=== PATIENT | male | born 1980 | race Caucasian/White ===

== ENCOUNTER 2016-09-17 20:37 | Inpatient (IN) ==
[2016-09-17] MEDS ORDERED: *HR* LORazepam 2 MG/ML VIAL IVP ONE ×3 (20:39→23:19)
[2016-09-17] MEDS ORDERED: *HR* LORazepam 2 MG/ML VIAL ONE (20:49)
[2016-09-17] MEDS ORDERED: 0.9 % Sodium Chloride 1,000 ML IVC ONE ×3 (20:55→22:08)
--- NOTE | 2016-09-17 21:06 | Emergency Department Note ---
Disposition Clinical Impression: Drug overdose Qualifiers: Encounter type: initial encounter Injury intent: accidental or unintentional Qualified Code(s): T50.901A - Poisoning by unspecified drugs, medicaments and biological substances, accidental (unintentional), initial encounter Disposition: Admitted As Inpatient Condition: Fair Referrals: NO,PCP [Non-Partnered Physician] - Forms: ED Satisfaction Letter Time of Disposition: 22:09 General Adult HPI - General Chief complaint: ED Overdose Stated complaint: overdose Time Seen by Provider: 09/17/16 20:39 Source: EMS, police Mode of arrival: EMS Limitations: no limitations Nursing Notes Reviewed: Yes Vital Signs Reviewed: Yes - History of Present Illness HPI Narrative: 36-year-old male [place] park with altered mental status reportedly is coming down off a bath salts. No known trauma. He is occasionally aggressive towards EMS crew. He is not able to provide any history to us. He is agitated and yelling unintelligible words. No further history available. Pain Scale: 0 - Related Data Home Medications Medication Instructions Recorded Confirmed No Known Home Drugs 07/14/15 09/17/16 Allergies Allergy/AdvReac Type Severity Reaction Status Date / Time No Known Allergies Allergy Verified 07/14/15 10:20 Limitations: ROS unobtainable due to patients medical condition Past Medical History - Past Medical History Source: unable to obtain Medical history: Reports: no medical history Psychiatric history: Reports: no psych history - Social History Smoking Status: Current every day smoker Smokeless Tobacco Status: No Alcohol use: Reports: occasionally Drug use: Reports: opiates, marijuana, IVDU, prescription drug abuse Physical Exam - Head Head exam: atraumatic, normocephalic, normal inspection - Eye Eye exam: Present: normal appearance, pupils dilated and reactive bilaterally., EOMI - ENT ENT exam: normal exam, normal oropharynx, mucous membranes moist - Neck Neck exam: Present: normal inspection, full ROM, trachea midline - Chest Chest inspection: Present: normal inspection, symmetric chest wall rise - Respiratory Respiratory exam: Clear to auscultation bilaterally without wheezes rales or rhonchi Cardiovascular Tachycardic - Abdominal Exam Abdominal exam: Present: soft, Non-Tender. Absent: tenderness, distention, guarding, rebound, rigidity - Extremities Exam Extremities exam: Present: normal inspection, full ROM - Neurological Exam Awake, yelling unintelligible words. moves all extremities. - Psychiatric Psychiatric exam: Present: normal affect, normal mood - Skin Skin exam: Present: warm, diaphoretic, intact, normal color - General Limitations: no limitations General appearance: appears intoxicated Course - Reevaluation(s) Reevaluation #1: Patient received 2 mg of Ativan IM followed by 8 mg of Ativan IV for sedation. He is calm and comfortable this time. Awaiting labs prior to admission. Time: 21:26 Reevaluation #2: Patient calm and comfortable on reevaluation. He is protecting his airway at this time. EKG shows sinus tachycardia 136 with normal axis and intervals. No ST elevation or depression. No pathologic Q waves. No old EKG available. Time: 21:47 Reevaluation #3: Patient noted not to maintain urine in his Jung. Bedside ultrasound performed by myself shows Jung balloon in apparently good position with deflated bladder immediately adjacent. IV fluids were started wide open and another liter was ordered as well. Hospitalist was paged for admission. Time: 22:09 Additional Reevaluation(s): Patient accepted by hospitalist Dr. Agosto Vital Signs Temperature 103 F H 09/17/16 20:37 Pulse Rate 156 09/17/16 20:37 Respiratory Rate 28 09/17/16 20:37 Blood Pressure 99/63 09/17/16 20:37 O2 Sat by Pulse Oximetry 94 09/17/16 20:37 Temperature 103 F H 09/17/16 20:38 Pulse Rate 111 09/17/16 21:37 Respiratory Rate 20 09/17/16 21:37 Blood Pressure 120/87 09/17/16 21:37 O2 Sat by Pulse Oximetry 100 09/17/16 21:37 Oxygen Delivery Oxygen Delivery Room Air Medical Decision Making - Lab Data Result diagrams: 09/17/16 21:19 09/17/16 21:19 Lab Results 09/17/16 09/17/16 Range/Units 21:19 21:19 WBC 16.0 H (4.3-11.1) K/mcL RBC 4.71 (4.19-5.50) M/mcL Hgb 14.8 (12.9-16.9) g/dL Hct 44.0 (37.5-50.1) % MCV 93.4 (83.0-100.0) fL MCH 31.4 (28.0-33.3) pg MCHC 33.6 (31.6-35.5) g/dL RDW 13.4 (11.5-14.5) % Plt Count 325 (140-400) K/mcL MPV 9.4 (9.4-12.4) fL Immature Gran % 1.0 (0-4) % Seg Neutrophils % 89.4 % Lymphocytes % 5.6 % Monocytes % 3.7 % Eosinophils % 0.1 % Basophils % 0.2 % Neutrophils # 14.3 H (1.6-8.9) K/mcL Lymphocytes # 0.9 (0.6-4.6) K/mcL Monocytes # 0.6 (0.0-1.3) K/mcL Eosinophils # 0.0 (0.0-0.6) K/mcL Basophils # 0.0 (0.0-0.2) K/mcL Immature Plt Fraction 3.0 (1.1-6.1) % Sodium 146 H (136-145) mEq/L Potassium 4.2 (3.5-4.5) mEq/L Chloride 105 (98-109) mEq/L Carbon Dioxide 18 L (19-29) mEq/L BUN 13 (8-26) mg/dL Creatinine 1.85 H (0.72-1.25) mg/dL Est GFR ( Amer) 51 L (> 60) Est GFR (Non-Af Amer) 42 L (> 60) BUN/Creatinine Ratio 7 (6-26) Glucose 115 H (70-99) mg/dL Calculated Osmolality 303 H (280-300) Calcium 10.6 (8.6-10.8) mg/dL Total Bilirubin 0.3 (0.2-1.2) mg/dL Direct Bilirubin 0.3 (0.0-0.5) mg/dL Indirect Bilirubin 0.0 (0.0-1.2) mg/dL AST 33 (5-34) Units/L ALT 39 (0-55) Units/L Alkaline Phosphatase 104 (38-126) Units/L Serum Total Protein 10.0 H (6.0-8.3) g/dL Albumin 4.6 (3.5-5.0) g/dL Globulin 5.4 H (2.4-3.5) g/dL Albumin/Globulin Ratio 0.9 L (1.1-2.2) Salicylates < 5.0 L (15-30) mg/dL Acetaminophen < 1.0 L (10-30) mcg/mL Ethyl Alcohol < 10 (0-10) mg/dL
[2016-09-17 21:40] LABS: Basophils % 0.2 %; Eosinophils % 0.1 %; Hemoglobin 14.8 g/dL (12.9-16.9); Lymphocytes # 0.9 K/mcL (0.6-4.6); Lymphocytes % 5.6 %; Mean Corpuscular HGB Conc 33.6 g/dL (31.6-35.5); Mean Corpuscular Hemoglobin 31.4 pg (28.0-33.3); Mean Corpuscular Volume 93.4 fL (83.0-100.0); Mean Platelet Volume 9.4 fL (9.4-12.4); Monocytes # 0.6 K/mcL (0.0-1.3); Monocytes % 3.7 %; Neutrophils # 14.3 K/mcL (1.6-8.9); Platelet Count 325 K/mcL (140-400); Red Blood Count 4.71 M/mcL (4.19-5.50); Red Cell Distribution Width 13.4 % (11.5-14.5); Segmented Neutrophils % 89.4 %
--- NOTE | 2016-09-17 21:50 | Emergency Department Note ---
Disposition Clinical Impression: Drug overdose Disposition: Admitted As Inpatient Condition: Fair General Adult HPI - General Chief complaint: ED Overdose Stated complaint: overdose Time Seen by Provider: 09/17/16 20:39 Source: EMS, police Mode of arrival: EMS Limitations: no limitations - History of Present Illness Pain Scale: 0 - Related Data Home Medications Medication Instructions Recorded Confirmed No Known Home Drugs 07/14/15 09/17/16 Allergies Allergy/AdvReac Type Severity Reaction Status Date / Time No Known Allergies Allergy Verified 07/14/15 10:20 Past Medical History - Past Medical History Medical history: Reports: no medical history Psychiatric history: Reports: no psych history - Social History Smoking Status: Current every day smoker Smokeless Tobacco Status: No Alcohol use: Reports: occasionally Drug use: Reports: opiates, marijuana, IVDU, prescription drug abuse Physical Exam - General Limitations: no limitations General appearance: appears intoxicated Course - Reevaluation(s) Reevaluation #1: I saw the patient with the resident, Dr. Pulido, immediately on patient arrival. Patient reportedly is bath salt overdose by his own admission. History is obtained from the patient and the police. He was very agitated on arrival with spastic muscle movements. However he was alert and oriented. We got an IV into him and gave him multiple doses of Ativan. He required a total of 10 mg of Ativan IV before he finally calmed down and was able to sleep. I checked on him several times and he is breathing okay. We will wait for lab results. Disposition will be based on diagnostic results and reevaluation. Time: 21:50 Vital Signs Temperature 103 F H 09/17/16 20:37 Pulse Rate 156 09/17/16 20:37 Respiratory Rate 28 09/17/16 20:37 Blood Pressure 99/63 09/17/16 20:37 O2 Sat by Pulse Oximetry 94 09/17/16 20:37 Temperature 98.2 F 09/18/16 00:03 Pulse Rate 111 09/17/16 21:37 Respiratory Rate 18 09/18/16 00:03 Blood Pressure 102/73 09/18/16 00:03 O2 Sat by Pulse Oximetry 100 09/17/16 21:37 Oxygen Delivery Oxygen Delivery Nasal Cannula Medical Decision Making - Lab Data Result diagrams: 09/17/16 21:19 09/17/16 21:19 Lab Results 09/17/16 09/17/16 09/17/16 Range/Units 20:55 20:55 21:19 WBC 16.0 H (4.3-11.1) K/mcL RBC 4.71 (4.19-5.50) M/mcL Hgb 14.8 (12.9-16.9) g/dL Hct 44.0 (37.5-50.1) % MCV 93.4 (83.0-100.0) fL MCH 31.4 (28.0-33.3) pg MCHC 33.6 (31.6-35.5) g/dL RDW 13.4 (11.5-14.5) % Plt Count 325 (140-400) K/mcL MPV 9.4 (9.4-12.4) fL Immature Gran % 1.0 (0-4) % Seg Neutrophils % 89.4 % Lymphocytes % 5.6 % Monocytes % 3.7 % Eosinophils % 0.1 % Basophils % 0.2 % Neutrophils # 14.3 H (1.6-8.9) K/mcL Lymphocytes # 0.9 (0.6-4.6) K/mcL Monocytes # 0.6 (0.0-1.3) K/mcL Eosinophils # 0.0 (0.0-0.6) K/mcL Basophils # 0.0 (0.0-0.2) K/mcL Immature Plt Fraction 3.0 (1.1-6.1) % Sodium (136-145) mEq/L Potassium (3.5-4.5) mEq/L Chloride (98-109) mEq/L Carbon Dioxide (19-29) mEq/L BUN (8-26) mg/dL Creatinine (0.72-1.25) mg/dL Est GFR ( Amer) (> 60) Est GFR (Non-Af Amer) (> 60) BUN/Creatinine Ratio (6-26) Glucose (70-99) mg/dL Calculated Osmolality (280-300) Calcium (8.6-10.8) mg/dL Total Bilirubin (0.2-1.2) mg/dL Direct Bilirubin (0.0-0.5) mg/dL Indirect Bilirubin (0.0-1.2) mg/dL AST (5-34) Units/L ALT (0-55) Units/L Alkaline Phosphatase (38-126) Units/L Serum Total Protein (6.0-8.3) g/dL Albumin (3.5-5.0) g/dL Globulin (2.4-3.5) g/dL Albumin/Globulin Ratio (1.1-2.2) Urine Color Yellow (Yellow) Urine Clarity Cloudy A (Clear) Urine pH 7.0 (5.0-8.0) pH Units Ur Specific [place] 1.018 (1.010-1.025) Urine Protein 100 H (Neg-Trace) mg/dL Urine Glucose (UA) Normal (Normal) mg/dL Urine Ketones Negative (Negative) mg/dL Urine Blood Large H (Negative) Urine Nitrite Negative (Negative) Urine Bilirubin Negative (Negative) Urine Urobilinogen Normal (Normal) mg/dL Ur Leukocyte Esterase Small H (Negative) Urine Microscopic RBC 15-30 H (0-3) per hpf Urine Microscopic WBC 15-30 H (0-3) per hpf Ur Squamous Epith Cells Moderate H (None-Few) per lpf Ur Transition Epith Cell Few (None-Few) per hpf Urine Bacteria Moderate H (None-Few) per hpf Hyaline Casts Few (None-Few) per lpf Urine Mucus Few (Few) Salicylates (15-30) mg/dL Urine Opiates Screen Positive H (Ctgztb=317) ng/mL Acetaminophen (10-30) mcg/mL Ur Barbiturates Screen Negative (Ptxrnc=848) ng/mL Ur Phencyclidine Scrn Negative (Cutoff=25) ng/mL Ur Amphetamines Screen Positive H (Izniyp=8715) ng/mL U Benzodiazepines Scrn Negative (Hgqvqq=855) ng/mL Urine Cocaine Screen Negative (Cutoff= 300) ng/mL U Marijuana (THC) Screen Negative (Cutoff = 50) ng/mL Ethyl Alcohol (0-10) mg/dL 09/17/ Range/Units 21:19 WBC (4.3-11.1) K/mcL RBC (4.19-5.50) M/mcL Hgb (12.9-16.9) g/dL Hct (37.5-50.1) % MCV (83.0-100.0) fL MCH (28.0-33.3) pg MCHC (31.6-35.5) g/dL RDW (11.5-14.5) % Plt Count (140-400) K/mcL MPV (9.4-12.4) fL Immature Gran % (0-4) % Seg Neutrophils % % Lymphocytes % % Monocytes % % Eosinophils % % Basophils % % Neutrophils # (1.6-8.9) K/mcL Lymphocytes # (0.6-4.6) K/mcL Monocytes # (0.0-1.3) K/mcL Eosinophils # (0.0-0.6) K/mcL Basophils # (0.0-0.2) K/mcL Immature Plt Fraction (1.1-6.1) % Sodium 146 H (136-145) mEq/L Potassium 4.2 (3.5-4.5) mEq/L Chloride 105 (98-109) mEq/L Carbon Dioxide 18 L (19-29) mEq/L BUN 13 (8-26) mg/dL Creatinine 1.85 H (0.72-1.25) mg/dL Est GFR ( Amer) 51 L (> 60) Est GFR (Non-Af Amer) 42 L (> 60) BUN/Creatinine Ratio 7 (6-26) Glucose 115 H (70-99) mg/dL Calculated Osmolality 303 H (280-300) Calcium 10.6 (8.6-10.8) mg/dL Total Bilirubin 0.3 (0.2-1.2) mg/dL Direct Bilirubin 0.3 (0.0-0.5) mg/dL Indirect Bilirubin 0.0 (0.0-1.2) mg/dL AST 33 (5-34) Units/L ALT 39 (0-55) Units/L Alkaline Phosphatase 104 (38-126) Units/L Serum Total Protein 10.0 H (6.0-8.3) g/dL Albumin 4.6 (3.5-5.0) g/dL Globulin 5.4 H (2.4-3.5) g/dL Albumin/Globulin Ratio 0.9 L (1.1-2.2) Urine Color (Yellow) Urine Clarity (Clear) Urine pH (5.0-8.0) pH Units Ur Specific [place] (1.010-1.025) Urine Protein (Neg-Trace) mg/dL Urine Glucose (UA) (Normal) mg/dL Urine Ketones (Negative) mg/dL Urine Blood (Negative) Urine Nitrite (Negative) Urine Bilirubin (Negative) Urine Urobilinogen (Normal) mg/dL Ur Leukocyte Esterase (Negative) Urine Microscopic RBC (0-3) per hpf Urine Microscopic WBC (0-3) per hpf Ur Squamous Epith Cells (None-Few) per lpf Ur Transition Epith Cell (None-Few) per hpf Urine Bacteria (None-Few) per hpf Hyaline Casts (None-Few) per lpf Urine Mucus (Few) Salicylates < 5.0 L (15-30) mg/dL Urine Opiates Screen (Zpnbzg=443) ng/mL Acetaminophen < 1.0 L (10-30) mcg/mL Ur Barbiturates Screen (Axdmus=654) ng/mL Ur Phencyclidine Scrn (Cutoff=25) ng/mL Ur Amphetamines Screen (Ysguwp=2758) ng/mL U Benzodiazepines Scrn (Qrihnz=939) ng/mL Urine Cocaine Screen (Cutoff= 300) ng/mL U Marijuana (THC) Screen (Cutoff = 50) ng/mL Ethyl Alcohol < 10 (0-10) mg/dL Critical Care Time Critical Care Time: Yes Total Critical Care Time: 30 Attestation: Patient arrived suffer from the toxic effects of bath salts. His combative and constantly moving. We had to give multiple doses of Ativan just to calm him down enough that we could evaluate him further. I was called to the bedside immediately on patient arrival due to the clinical presentation. I spent time doing the H&P, serial examinations, initiating treatments, evaluating test results, consultation with admitting staff for admission. Patient was admitted to the intensive care unit. Attestation Statement - Attestation Attestation: I, Dr. Vasquez, examined this patient [id number] and my medical decision- making was reviewed with Dr. Pulido, Resident Physician. I agree with the documented findings, disposition and treatment plan as described except to the extent set forth below. Please see my progress notes for details.
[2016-09-17 21:55] LABS: Acetaminophen < 1.0 mcg/mL (10-30); Alanine Aminotransferase 39 Units/L (0-55); Albumin 4.6 g/dL (3.5-5.0); Albumin/Globulin Ratio 0.9 (1.1-2.2); Alkaline Phosphatase 104 Units/L (38-126); Aspartate Amino Transferase 33 Units/L (5-34); BUN/Creatinine Ratio 7 (6-26); Bilirubin,Direct 0.3 mg/dL (0.0-0.5); Blood Urea Nitrogen 13 mg/dL (8-26); Calcium 10.6 mg/dL (8.6-10.8); Carbon Dioxide 18 mEq/L (19-29); Chloride 105 mEq/L (98-109); Ethanol < 10 mg/dL (0-10); Globulin 5.4 g/dL (2.4-3.5); Glucose 115 mg/dL (70-99); Osmolality,Calculated 303 (280-300); Potassium 4.2 mEq/L (3.5-4.5); Salicylate < 5.0 mg/dL (15-30); Sodium 146 mEq/L (136-145); eGFR For African Americans 51 (> 60); eGFR For Non-African Americans 42 (> 60)
[2016-09-17 21:56] LABS: Bilirubin,Total 0.3 mg/dL (0.2-1.2)
[2016-09-17] MEDS ORDERED: *HR* LORazepam 2 MG/ML VIAL IVP PRN (23:43)
[2016-09-18] MEDS ORDERED: Dexmedetomidine HCl 400 MCG/100 ML MLS IVC ONE (00:01)
[2016-09-18] MEDS ORDERED: *HR* LORazepam 2 MG/ML VIAL ONE ×2 (00:07→00:30)
[2016-09-18 00:37] LABS: Bilirubin,Urine Negative (Negative); Blood,Urine Large (Negative); Clarity,Urine Cloudy (Clear); Color,Urine Yellow (Yellow); Glucose,Urine (UA) Normal (Normal); Ketones,Urine Negative (Negative); Leukocyte Esterase,Urine Small (Negative); Nitrite,Urine Negative (Negative); Protein,Urine 100 mg/dL (Neg-Trace); Specific Gravity,Urine 1.018 (1.010-1.025); Urobilinogen,Urine Normal (Normal)
[2016-09-18 00:38] LABS: Hyaline Casts,Urine Few per lpf (None-Few); RBC,Urine 15-30 per hpf (0-3); WBC,Urine 15-30 per hpf (0-3)
[2016-09-18] MEDS ORDERED: LORazepam 20 MG in 0.9 % Sodium Chloride Excel Bg 240 ML IVC SCH (00:45)
[2016-09-18 00:49] LABS: Amphetamine Screen,Urine Positive ng/mL (Cutoff=1000); Barbiturate Screen,Urine Negative ng/mL (Cutoff=200); Benzodiazepines Screen,Urine Negative ng/mL (Cutoff=200); Cannabinoid Screen,Urine Negative ng/mL (Cutoff = 50); Cocaine Screen,Urine Negative ng/mL (Cutoff= 300); Opiate Screen,Urine Positive ng/mL (Cutoff=300); Phencyclidine Screen,Urine Negative ng/mL (Cutoff=25)
[2016-09-18 00:51] LABS: Bacteria,Urine Moderate per hpf (None-Few); Mucus,Urine Few (Few); Squamous Epithelial Cell,Urine Moderate per lpf (None-Few); Transitional Epi Cells,Urine Few per hpf (None-Few)
[2016-09-18] MEDS ORDERED: Naloxone 0.4 MG/ML INJ IVP PRN ×2 (01:22→07:32)
--- NOTE | 2016-09-18 01:28 | Internal Med History&Physical ---
<ChrisEddie - Last Filed: 09/18/16 01:25> Date of Encounter: 09/18/16 Time of Encounter: 01:25 Assessment and Plan (1) Drug overdose Current visit: Yes Status: Acute Patient apparently told police that he took a bath salts. Patient is also positive for opiates and amphetamines in his urinary drug screen. Patient was extremely agitated upon arrival and is requiring large amounts of Ativan due to his agitation. Ativan drip will be ordered and used his IV pushes are not enough to sedate the patient. I spoke with poison control who had no further recommendations and stated that patient is under the influence of bath salts usually require large amounts of benzodiazepines to control agitation. We will continue to monitor. Qualifiers: Encounter type: initial encounter Injury intent: accidental or unintentional Qualified Code(s): T50.901A - Poisoning by unspecified drugs, medicaments and biological substances, accidental (unintentional), initial encounter (2) Acute kidney injury Current visit: Yes Status: Acute Patient's creatinine is 1.85 upon presentation. We have no old measurements to compare to. This is likely due to dehydration in the setting of drug abuse. We will give the patient IV fluids. Recheck BMP in the morning. (3) Leukocytosis Current visit: Yes Status: Acute Likely stress reaction in the setting of drug use. Patient does not appear infected. Will hold off antibiotics at this time. We will recheck CBC in the morning. Qualifiers: Leukocytosis type: unspecified Qualified Code(s): D72.829 - Elevated white blood cell count, unspecified Internal Medicine - H&P: HPI Chief complaint: Overdose Admitted From: Emergency Dept Plans for Post Hospital Care: Home History of present illness: Mr. Ruiz is a 36 year old male with no medical history who presents with concern for overdose. Patient was apparently [place] in the park by police and was agitated at that time. Apparently he told the police that he used Bath salts that night. Given the patient's agitation and altered mental status and the rest of the history somewhat limited. The patient was agitated on presentation to the emergency department. The patient received 10 mg of Ativan in the emergency department which sedated the patient sufficiently. Shortly thereafter the patient then woke up and became more agitated and was agitated upon arrival to the intensive care unit. Patient was speaking incoherently and thrashing about in bed. Past Med Surg Social Fam HX - Past Medical History Medical history: no medical history Psychiatric history: no psych history - Past Surgical History Surgical History: non-contributory - Social History Smoking Status: Current every day smoker Smokeless Tobacco Status: No Alcohol use: occasionally Drug use: opiates, marijuana, IVDU, prescription drug abuse - Additional Family History Additional family history: Unable to obtain family history given the patient's mental status. Internal Medicine - H&P: Meds No Known Home Drugs 07/14/15 [History] Allergies No Known Allergies Allergy (Verified 07/14/15 10:20) ROS unobtainable: due to mental status All Systems PM: A 10-system review of systems was performed and is negative for pertinent findings except as documented above in the HPI. - Constitutional Vitals: Temp Pulse Resp BP Pulse Ox 98.2 F 98 18 102/73 96 09/18/16 00:03 09/17/16 23:26 09/18/16 00:03 09/18/16 00:03 09/17/16 23:26 Exam: Agitated and unable to answer questions appropriately. - Head Head exam: Present: atraumatic, normal inspection, normocephalic - Eye Additional comments: Patient's mental status did not allow eye or ENT examination. - Respiratory Respiratory exam: Present: tachypnea. Absent: rales, respiratory distress, rhonchi, wheezes - Cardiovascular Cardiovascular exam: Present: tachycardia (Regular). Absent: gallop, rubs, systolic murmur - GI/Abdominal GI/Abdominal exam: Present: normal bowel sounds, soft. Absent: distended, tenderness - Extremities Exam Extremities exam: Absent: pedal edema, tenderness - Neurological Exam Neurological exam: Present: altered Additional comments: Patient is significantly altered and will not participate in the neurologic exam. Patient is thrashing about in bed, moving all 4 extremities spontaneously. There are no obvious signs of neurologic deficit. - Skin Skin exam: Present: dry, intact, warm Internal Med - H&P Results - Labs CBC & Chem 7: 09/17/16 21:19 09/17/16 21:19 <Judd Gilman - Last Filed: 09/18/16 04:10> Date of Encounter: 09/18/16 Assessment and Plan (1) Hypernatremia Current visit: Yes Status: Acute Possibly secondary to dehydration. On IV dextrose half normal saline. Monitor sodium levels. (2) UTI (urinary tract infection) Current visit: Yes Status: Suspected Urinalysis abnormal. Urine Culture requested. Empirically treat with ceftriaxone. Qualifiers: Urinary tract infection type: site unspecified (3) Psychomotor agitation Current visit: Yes Status: Acute Possibly due to bath salt / amphetamine. Supportive care. Ativan / Precedex for agitation. Internal Medicine - H&P: HPI History of present illness: Mr. Ruiz is a 36 year old male All Systems PM: A 10-system review of systems was performed and is negative for pertinent findings except as documented above in the HPI. - Constitutional Vitals: Temp Pulse Resp BP Pulse Ox 98.2 F 88 23 108/72 97 09/18/16 00:22 09/18/16 03:00 09/18/16 03:00 09/18/16 03:00 09/18/16 03:00 Internal Med - H&P Results - Labs CBC & Chem 7: 09/17/16 21:19 09/17/16 21:19 - Attending Attestation I performed history and physical examination of the patient and discussed management with resident/Nuclear Equipment Research Engineer. I reviewed the resident/ Interns note and agree with the documented findings and plan of care. 36 Y/M apparently used bath salts and was found agitated by the police. Patient was given multiple doses of Ativan in the emergency department and admitted to the hospitalist service, to the ICU for further management. O/E: Agitated / Psychomotor agitation. Lungs clear to auscultation. Cardiac regular rate and rhythm. Labs reviewed. Urine drug screen is positive for opiates and amphetamines. Urinalysis is positive for leukocyte esterase and bacteria. Serum creatinine is 1.85. CBC shows WBC of 16. EKG reported sinus tachycardia A/P: Recreational drug use / overdose; Agitation: Pt apparently used bath salt. Supportive care. Ativan / Precedex for agitation. IV fluids. Seizure precautions and close monitoring in the ICU. The patient is not improving consider CT scan of the head. Acute kidney injury: Possibly due to volume depletion. Will check CK level to exclude significant rhabdomyolysis. Possible urinary tract infection: Urinalysis abnormal. Urine Culture requested. Empirically treat with ceftriaxone. Hypernatremia: Possibly secondary to dehydration. On IV dextrose half normal saline. Monitor sodium levels. Leucocytosis: Likely stress response versus UTI. Will request CXR, to exclude pneumonia.
[2016-09-18] MEDS ORDERED: 0.9 % Sodium Chloride 1,000 ML IVC SCH (01:30)
[2016-09-18 06:27] LABS: Basophils % 0.2 %; Eosinophils % 0.1 %; Hematocrit 39.4 % (37.5-50.1); Immature Granulocytes % 0.7 % (0-4); Lymphocytes # 2.3 K/mcL (0.6-4.6); Lymphocytes % 20.1 %; Mean Corpuscular HGB Conc 33.2 g/dL (31.6-35.5); Mean Corpuscular Hemoglobin 31.6 pg (28.0-33.3); Mean Corpuscular Volume 95.2 fL (83.0-100.0); Mean Platelet Volume 9.2 fL (9.4-12.4); Monocytes # 0.8 K/mcL (0.0-1.3); Monocytes % 6.8 %; Neutrophils # 8.2 K/mcL (1.6-8.9); Platelet Count 200 K/mcL (140-400); Red Blood Count 4.14 M/mcL (4.19-5.50); Red Cell Distribution Width 13.8 % (11.5-14.5); Segmented Neutrophils % 72.1 %
[2016-09-18 06:28] LABS: Hemoglobin 13.1 g/dL (12.9-16.9)
[2016-09-18 06:30] LABS: BUN/Creatinine Ratio 15 (6-26); Blood Urea Nitrogen 18 mg/dL (8-26); Carbon Dioxide 24 mEq/L (19-29); Chloride 109 mEq/L (98-109); Glucose 95 mg/dL (70-99); Osmolality,Calculated 292 (280-300); Potassium 4.4 mEq/L (3.5-4.5); Sodium 140 mEq/L (136-145); eGFR For African Americans > 60 (> 60); eGFR For Non-African Americans > 60 (> 60)
[2016-09-18 06:32] LABS: Magnesium 2.7 mg/dL (1.6-2.6); Phosphorous 4.5 mg/dL (2.3-4.7)
[2016-09-18 06:33] LABS: Calcium 8.7 mg/dL (8.6-10.8)
[2016-09-18] MEDS ORDERED: D5% in 0.45% NACL w KCl 20 MEQ/1,000 ML MLS IVC SCH ×2 (07:32)
[2016-09-18] MEDS ORDERED: *HR* LORazepam 2 MG/ML VIAL IVP PRN (07:32)
[2016-09-18] MEDS ORDERED: *HR* Heparin 5,000 UNIT/ML VIAL SQ SCH ×2 (08:00)
[2016-09-18] MEDS ORDERED: Pantoprazole 40 MG VIAL IVPB SCH (09:00)
[2016-09-18 10:38] VITALS: BP 117/83
--- NOTE | 2016-09-18 16:47 | Event Note ---
Date of Encounter: 09/18/16 Time of Encounter: 16:47 van signed out AMA
--- NOTE | 2016-09-18 20:41 | Electrocardiograph Report ---
[place] [address] Test Date: 2016-09-17 Pat Name: Naseem Ruiz Department: 104 Room: 2NE30 Gender: M Electrical And Instrument Technician: LUZ : 1980 Requested By: Avani Núñez Order Number: [id number] Reading MD: Clayton Andino MD Measurements Intervals [place] Rate: 136 P: 72 TN: 120 QRS: 80 QRSD: 86 T: 55 QT: 296 QTc: 376 Interpretive Statements SINUS TACHYCARDIA MINIMAL VOLTAGE CRITERIA FOR LVH, CONSIDER NORMAL VARIANT Electronically Signed On 09-18-2016 20:39:18 EDT by Clayton Andino MD
--- NOTE | 2016-09-18 20:43 | Electrocardiograph Report ---
[address] [address] Test Date: 2016-09-17 Pat Name: Naseem Ruiz Department: 104 Room: 2N0 Gender: M Prescription Eyeglass Maker: CYNTHIA : 1980 Requested By: Ad Vasquez Order Number: [id number] Reading MD: Clayton Andino MD Measurements Intervals [place] Rate: 114 P: 67 RI: 150 QRS: 70 QRSD: 87 T: 47 QT: 345 QTc: 413 Interpretive Statements SINUS TACHYCARDIA LEFT ATRIAL ENLARGEMENT Electronically Signed On 09-18-2016 20:41:25 EDT by Clayton Andino MD
== END 2016-09-18 15:10 | disposition left against medical advice (07) | DRG 812 ==
LOC: ICNU 20:37 → EMEROO 20:37 → ICNU 09-18 00:04 → 2NENU 09-18 09:47
PROVIDERS: ADMIT Internal Medicine; ATTEND Internal Medicine